=== PATIENT | female | born 1985 | race Caucasian/White ===

== ENCOUNTER → 2018-05-25 | Outpatient (CLI) | payer BC ==
[2018-05-25 18:07] LABS: BASO % 0.5 % (0.0-1.0); EOS # 0.1 10^3/uL (0.0-0.50); EOS % 1.6 % (0.0-3.0); HEMATOCRIT 40.2 % (36.0-47.0); IMMATURE GRANULOCYTE % 0.2 % (0-3.0); LYMPH # 2.4 10^3/uL (1.5-4.5); LYMPH % 28.9 % (24.0-44.0); MEAN CORPUSCULAR HEMOGLOBIN 30.8 pg (27.0-33.0); MEAN CORPUSCULAR HGB CONC 34.8 g/dl (32.0-36.5); MEAN CORPUSCULAR VOLUME 88.4 fl (80.0-96.0); MONO # 0.6 10^3/uL (0.0-0.8); MONO % 7.7 % (0.0-5.0); NEUTROPHILS % 61.1 % (36.0-66.0); PLATELET COUNT, AUTOMATED 283 10^3/uL (150-450); RED BLOOD COUNT 4.55 10^6/uL (4.00-5.40); RED CELL DISTRIBUTION WIDTH 11.9 % (11.5-14.5); WHITE BLOOD COUNT 8.2 10^3/uL (4.0-10.0)
[2018-05-25 20:48] LABS: CHLAMYDIA DNA AMPLIFICATION NEGATIVE (NEGATIVE); GC DNA AMPLIFICATION NEGATIVE (NEGATIVE)
[2018-05-27 09:07] LABS: RUBELLA IgG QUALITATIVE IMMUNE (IMMUNE)
[2018-05-27 09:16] LABS: HBsAg Prenatal NEGATIVE (NEGATIVE)
[2018-05-27 09:36] LABS: HEPATITIS C VIRUS ABY INDEX 0.1 INDEX (<0.8)
[2018-06-01 08:29] LABS: HIV 1&2 SCREEN CENTAUR REACTIVE (NEGATIVE)
[2018-06-01 08:31] LABS: IMMUNODEF. VIRAL AB CONFIRMAT NEGATIVE
== END ==
LOC: M LAB 16:38
DX: Z34.81 Encounter for supervision of other normal pregnancy, first trimester (principal); Z36.89 Encounter for other specified antenatal screening; Z3A.08 8 weeks gestation of pregnancy
CPT/HCPCS: 86762

== ENCOUNTER → 2018-06-24 | Outpatient (CLI) | payer BC | LOC: M SMT 09:29 | DX: Z34.81 Encounter for supervision of other normal pregnancy, first trimester (principal) | CPT/HCPCS: 36415 ==

== ENCOUNTER → 2018-08-11 | Outpatient (CLI) | payer BC | LOC: M RAD 09:02 | DX: Z34.82 Encounter for supervision of other normal pregnancy, second trimester (principal); Z36.89 Encounter for other specified antenatal screening; Z3A.19 19 weeks gestation of pregnancy | CPT/HCPCS: 76811 ==

== ENCOUNTER → 2018-09-03 | Outpatient (CLI) | payer BC | LOC: M RAD 07:58 | DX: Z34.02 Encounter for supervision of normal first pregnancy, second trimester (principal); Z3A.23 23 weeks gestation of pregnancy | CPT/HCPCS: 76816 ==

== ENCOUNTER → 2018-09-18 | Outpatient (CLI) | payer BC ==
[2018-09-18 13:37] LABS: HEMATOCRIT 37.6 % (36.0-47.0); HEMOGLOBIN 12.7 g/dl (12.0-15.5); MEAN CORPUSCULAR HEMOGLOBIN 31.9 pg (27.0-33.0); MEAN CORPUSCULAR HGB CONC 33.8 g/dl (32.0-36.5); MEAN CORPUSCULAR VOLUME 94.5 fl (80.0-96.0); PLATELET COUNT, AUTOMATED 210 10^3/uL (150-450); RED BLOOD COUNT 3.98 10^6/uL (4.00-5.40); RED CELL DISTRIBUTION WIDTH 12.9 % (11.5-14.5); WHITE BLOOD COUNT 6.9 10^3/uL (4.0-10.0)
[2018-09-18 14:00] LABS: GLUCOSE CHALLENGE TEST 1 HOUR 98 MG/DL (LESS THAN 140)
== END ==
LOC: M SMT 08:51
DX: Z36.89 Encounter for other specified antenatal screening (principal)
CPT/HCPCS: 82950

== ENCOUNTER → 2018-12-07 | Outpatient (REF) | payer BC | LOC: M LAB REF 17:32 | PROVIDERS: ATTEND Advanced Practice Midwife | DX: Z34.03 Encounter for supervision of normal first pregnancy, third trimester (principal); Z3A.00 Weeks of gestation of pregnancy not specified ==

== ENCOUNTER 2019-01-04 02:59 | Inpatient (IN) | payer BC ==
[~2019-01-04] VITALS: Ht 167.6 cm; Wt 99.2 kg
[2019-01-04] VITALS (39 sets, daily range): BP systolic 78–187; BP diastolic 40–144
[2019-01-04] MEDS ORDERED: PRENTAB9 PO (03:31)
[2019-01-04] MEDS ORDERED: FISH1000 PO (03:33)
[2019-01-04] MEDS ORDERED: GLUC500T53 PO (03:33)
[2019-01-04] MEDS ORDERED: LR 1,000 ML IV SCH (03:38)
[2019-01-04] MEDS ORDERED: LACTATED RINGER'S 1000 ML IV STA (03:38)
--- NOTE | 2019-01-04 03:58 | HPEPDOC ---
Obstetrical History & Physical General Date of Admission 01/04/2019 Primary Care Physician: RICARDO MARSHALL CNM History of Present Illness Patient is a 33-year-old female who is a at 40.5 weeks gestation with an JULIO of 12/30/18 based off of her LMP and consistent with her first trimester ultrasound. She initiated care in her first trimester ultrasound. Her has been uncomplicated. She presents to L&D in active labor. She reports active movement. She denies vaginal bleeding or leaking of fluid. 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 Past Medical History Medical History varicella as a child Surgical History: Denies/None Family History Significant Family History: Cancer, Diabetes, Hyperlipidemia, Other (lupus, RA, hypothyroidism, migraines, Raynauds, DVT's) Social History Marital Status: Family situation: Spouse/partner home Psychosocial History: No pertinent psych hx * Smoker: non-smoker Alcohol: Denies Drugs: denies Abuse Violence Screening Have you been hit/kicked/slapp: No Have you been sexually assault: No Imunizations Tdap status: current Allergies Coded Allergies: No Known Allergies (Unverified , 01/04/19) Medications Scheduled Fish Oil (Fish Oil) 1,000 Mg Cap, 1 CAP PO DAILY Multivitamins/ ( 27-0.8 mg) 1 Tab Tab, 1 TAB PO DAILY Miscellaneous Medications Glucosamine Hydrochloride (Glucosamine) 500 Mg Tab, 500 MG PO Physical Examination Physical Examination GENERAL: Alert and oriented times three. BREAST: . ABDOMEN: Gravid and non-tender to touch. FETUS: Is vertex (VTX) by sterile vaginal examination (SVE), fetus is vertex (VTX) by Nael. HEART RATE: Regular rate and rhythm. LUNGS: Clear to auscultation (CTA). EXTREMITIES: Generalized edema. No clonus. Deep tendon reflexes (DTRs) + 2. Laboratory Data Urine Culture: No Growth Pertinent Laboratoy Data Blood Type: A+ RBC Antibody Screen: Negative HIV: Negative Hepatitis B: Negative Hepatitis C: Negative Rapid Plasma Reagin: Nonreactive Rubella: Immune Chlamydia/Gonorrhea: Negative Group B Streptococcus: Negative Glucose Tolerance Test: 98 Anatomy Ultrasound Ultrasound Date: Sep 03, 2018 Placenta Location: Anterior Normal Anatomy: Yes Placenta Previa: No Vaginal Examination Dilation: 4 cm Effacement: 100% Station: 0 Cervical Position: Anterior Presentation: Cephalic presentation Position: Vertex (occiput) Assessment Heart Rate (FHR): 130 Variability: Moderate Accelerations: Positive Decelerations: None Tocometer Contractions: Yes Frequency: regular Strength: palpated as moderate Multi-drug resistant Organism: No history of MDRO Assessment/Plan Assessment IUP at 40.5 weeks gestation Active labor GBS negative Category I FHR tracing Plan Admit to L&D. OOB ad paola Diet: clears. Group B Streptococcus (GBS) negative. Labs and intravenous (IV) per unit protocol. Lactated Ringers (LR): Bolus 800 mL, then at 125 mL/hr. Anesthesia consult per patient's request. Anticipate cervical change and . RICARDO MARSHALL CNM Jan 04, 2019 03:58
[2019-01-04 04:09] LABS: HEMATOCRIT 39.4 % (36.0-47.0); HEMOGLOBIN 13.4 g/dl (12.0-15.5); MEAN CORPUSCULAR HEMOGLOBIN 30.4 pg (27.0-33.0); MEAN CORPUSCULAR VOLUME 89.3 fl (80.0-96.0); PLATELET COUNT, AUTOMATED 159 10^3/uL (150-450); RED BLOOD COUNT 4.41 10^6/uL (4.00-5.40); WHITE BLOOD COUNT 10.5 10^3/uL (4.0-10.0)
[2019-01-04] MEDS ORDERED: OXYTOCIN DRIP 30 UNITS in APPROPRIATE DILUENT 1 EA IV SCH ×2 (04:15→12:56)
[2019-01-04] MEDS ORDERED: FENTANYL 2MCG/ML ROPIVACAINE 0.2% IN 0.9% NACL 100ML IVBAG As Ordered ONE (04:44)
[2019-01-04] MEDS ORDERED: ONDANSETRON 4MG/2ML VIAL (J2405) IV PRN (05:45)
[2019-01-04] MEDS ORDERED: diphenhydrAMINE INJ 50MG/ML VIAL (J1200) IV PRN (05:45)
[2019-01-04] MEDS ORDERED: FENTANYL/ROPIVACAINE/NACL BAG 100 ML EPIDURAL SCH (05:45)
[2019-01-04] MEDS ORDERED: ePHEDrine SULFATE 25 MG/5 ML(5MG/ML) SYRINGE IV PRN (05:45)
[2019-01-04] MEDS ORDERED: EPIDURAL COMMENT XX SCH (05:45)
[2019-01-04] MEDS ORDERED: EPIDURAL/PCA KEYS XX PRN (05:45)
[2019-01-04] MEDS ORDERED: LACTATED RINGER'S 1000 ML IV PRN (05:45)
[2019-01-04] MEDS ORDERED: NALOXONE INJ 0.4 MG/1 ML VIAL (J2310) IV PRN (05:45)
[2019-01-04] MEDS ORDERED: REFRIGERATOR IV KEYS XX PRN (05:45)
[2019-01-04] MEDS: PRENATAL VITAMINS CHEWABLE TABLET PO SCH (09:00)
--- NOTE | 2019-01-04 10:06 | IPNPDOC ---
Obstetrical Progress Note Date of Service Jan 04, 2019 Subjective Patient comfortable with epidural. Objective Vital Signs Date Time Temp Pulse Resp B/P (MAP) Pulse Ox O2 Delivery O2 Flow Rate FiO2 01/04/19 07:18 98.4 63 18 92/51 (65) Assessment Heart Rate (FHR): 140 Variability: Moderate Accelerations: Positive Decelerations: None Heart Rate Tracing: Category I Tocometer Contractions: Yes Frequency: regular Sterile Vaginal Examination Dilation: 9 cm Effacement (%): 100% Station: +1 Postion/Presentation: Cephalic presentation Assessment and Plan Status: Reassuring Group B Streptococcus: Negative Anticipate: Vaginal Delivery Additional Comments Pitocin at 2 mu/min. Anticipate vaginal delivery. RICARDO MARSHALL CNM Jan 04, 2019 10:06
[2019-01-04] MEDS ORDERED: DOCUSATE SODIUM 100 MG CAP PO PRN (13:00)
[2019-01-04] MEDS ORDERED: ACETAMINOPHEN 500 MG TAB PO PRN (13:00)
[2019-01-04] MEDS ORDERED: ANUSOL HC CREAM 30GM TOP PRN (13:00)
[2019-01-04] MEDS ORDERED: RHOGAM 300 MCG (1500 IU) INJ (J2790) IM SCH (13:00)
[2019-01-04] MEDS ORDERED: MEASLES,MUMPS,RUBELLA VACCINE INJ (MMR-II) (90707) SC SCH (13:00)
[2019-01-04] MEDS ORDERED: METHYLERGONOVINE MALEATE 0.2 MG TAB PO PRN (13:00)
[2019-01-04] MEDS ORDERED: DIBUCAINE 1% OINTMENT 30GM TOP PRN (13:00)
--- NOTE | 2019-01-04 13:00 | DNPDOC ---
[facility] Delivery Note Delivery Note DATE OF DELIVERY: 01/04/2019 at 1131 PREDELIVERY DIAGNOSIS: 40-5/7 weeks' gestation and labor. POST DELIVERY DIAGNOSIS: Delivered. PROCEDURE: Spontaneous vaginal delivery. CLOTH MENDER: Ricardo Moore CNM, [facility] ANESTHESIA: epidural. ESTIMATED BLOOD LOSS: 650 mL. FINDINGS: 7 pounds 9 ounce; 3440 grams, female infant; Score 9/9, nuchal cord times x1 tight; right sulcus tear and 2nd degree perineal; meconium. DELIVERY SUMMARY: Patient is a 33-year-old female who is now a at 40.5 weeks gestation who presented to L&D in active labor. She received an epidural for pain management. The patient progressed to fully dilated at 1045 with IV Pitocin augmentation. She pushing to a living female in the TORIE position with restitution to ROT at 1131. A tight nuchal cord was noted. The anterior shoulder delivered with ease and the corpus immediately followed via [place]. The baby was placed [id number] active and crying with stimulation. The cord was clamped x2 after 2 minutes and cut by the FOB. A 3-vessel cord was noted. The placenta delivered spontaneously and intact at 1135. Uterine hemostasis was achieved via rapid infusion of IV Pitocin and fundal massage. The vagina and perineum were inspected and found to have a second degree laceration with a deep right sulcus tear and a left labial laceration. The second degree was repaired with a 3.[address]-1. Dr. Arteaga was called into delivery to do the sulcus repair. His repair was done with a 3.0 Chromic. Mom plans to breast feed her . They are naming her Mayda. Both mom and baby are in stable condition. RICARDO MOORE CNM Jan 04, 2019 13:00
[2019-01-04] MEDS: IBUPROFEN 800 MG TAB PO PRN (18:03)
[2019-01-05 06:00] VITALS: BP 98/58
[2019-01-05] MEDS: IBUPROFEN 800 MG TAB PO PRN ×2 (06:13→16:03)
[2019-01-05 06:20] LABS: HEMATOCRIT 24.5 % (36.0-47.0); MEAN CORPUSCULAR HEMOGLOBIN 30.2 pg (27.0-33.0); MEAN CORPUSCULAR HGB CONC 33.1 g/dl (32.0-36.5); MEAN CORPUSCULAR VOLUME 91.4 fl (80.0-96.0); PLATELET COUNT, AUTOMATED 125 10^3/uL (150-450); RED BLOOD COUNT 2.68 10^6/uL (4.00-5.40); WHITE BLOOD COUNT 11.5 10^3/uL (4.0-10.0)
[2019-01-05 06:23] LABS: HEMOGLOBIN 8.1 g/dl (12.0-15.5)
[2019-01-05] MEDS: PRENATAL VITAMINS CHEWABLE TABLET PO SCH (09:17)
--- NOTE | 2019-01-05 14:22 | RO ---
DATE OF PROCEDURE: 01/04/2019 PREPROCEDURE DIAGNOSIS: Right vaginal sulcus laceration following vaginal delivery. POSTPROCEDURE DIAGNOSIS: Right vaginal sulcus laceration following vaginal delivery. PROCEDURE: Repair of right vaginal sulcus tear. SURGEON: Dr. Hardy Arteaga. HEALTHCARE ECONOMICS CONSULTANT: Cheryl Rodriguez CNM. ANESTHESIA: Epidural. ESTIMATED BLOOD LOSS: 400 mL FINDINGS: Large right vaginal sulcus tear into the ischiorectal fossa approximately three-quarters of the way up the vagina adjacent to the cervix. DESCRIPTION OF PROCEDURE: After successful completion of vaginal delivery, a large sulcus tear was noted which required repair. I was called to perform the repair. A right angle retractor was placed anteriorly in the vagina. A right urethral retractor was placed in the left vaginal side wall. The apex of the sulcus tear was sutured with #2-0 chromic suture. The sulcus tear was repaired with #2-0 chromic in a running locked fashion. Good hemostasis was noted. Sponge and needle counts were correct.
[2019-01-05 18:00] VITALS: BP 110/65
[2019-01-06] MEDS: IBUPROFEN 800 MG TAB PO PRN (04:34)
[2019-01-06 06:00] VITALS: BP 94/50
[2019-01-06] MEDS: PRENATAL VITAMINS CHEWABLE TABLET PO SCH (07:18)
[2019-01-06] MEDS ORDERED: IBUP-1114 PO (08:44)
[2019-01-06] MEDS ORDERED: MAPA500T2 PO (08:44)
== END 2019-01-06 11:00 | disposition home or self-care (01) | DRG 560 ==
LOC: M LDO 02:59 → M LDI 03:42 → M OBS 18:37
PROVIDERS: ADMIT Advanced Practice Midwife; ATTEND Advanced Practice Midwife
PROC: 10E0XZZ Delivery of Products of Conception, External Approach (ICD-10-PCS; principal; 2019-01-04)
PROC: 05QM0ZZ Repair Right Internal Jugular Vein, Open Approach (ICD-10-PCS; 2019-01-04)
DX: O48.0 Post-term pregnancy (principal); Z37.0 Single live birth; Z3A.40 40 weeks gestation of pregnancy; O70.1 Second degree perineal laceration during delivery; O69.89X0 Labor and delivery complicated by other cord complications, not applicable or unspecified

== ENCOUNTER → 2019-11-01 | Outpatient (REF) | payer BC ==
[~2019-11-01] MED LIST: FISH1000 PO; GLUC500T53 PO; IBUP-1114 PO; MAPA500T2 PO; PRENTAB9 PO
== END ==
LOC: M SFHCCLAY 08:47
PROVIDERS: ATTEND Family Medicine
DX: Z11.4 Encounter for screening for human immunodeficiency virus [HIV] (principal)

== ENCOUNTER → 2020-04-17 | Outpatient (REF) | payer BC ==
[2020-04-17 13:00] LABS: HEMATOCRIT 42.8 % (36.0-47.0); HEMOGLOBIN 14.3 g/dl (12.0-15.5); MEAN CORPUSCULAR HEMOGLOBIN 30.9 pg (27.0-33.0); MEAN CORPUSCULAR HGB CONC 33.4 g/dl (32.0-36.5); MEAN CORPUSCULAR VOLUME 92.4 fl (80.0-96.0); PLATELET COUNT, AUTOMATED 240 10^3/uL (150-450); RED BLOOD COUNT 4.63 10^6/uL (4.00-5.40); WHITE BLOOD COUNT 5.5 10^3/uL (4.0-10.0)
[2020-04-17 13:55] LABS: HEPATITIS C VIRUS ABY INDEX 0.1 INDEX (<0.8); HIV 1&2 SCREEN CENTAUR NEGATIVE (NEGATIVE)
[2020-04-17 14:52] LABS: CHLAMYDIA DNA AMPLIFICATION NEGATIVE (NEGATIVE); GC DNA AMPLIFICATION NEGATIVE (NEGATIVE)
== END ==
LOC: M PLALAB 09:56
PROVIDERS: ATTEND Advanced Practice Midwife
DX: Z34.81 Encounter for supervision of other normal pregnancy, first trimester (principal)

== ENCOUNTER → 2020-06-23 | Outpatient (CLI) | payer BC ==
--- NOTE | 2020-07-07 13:01 | REP ---
COMPLETE OBSTETRICAL ULTRASOUND CLINICAL: Anatomical assessment. FINDINGS: Ultrasound examination demonstrates a single live intrauterine in cephalic presentation. Placenta noted posteriorly and grade 1 without evidence for placenta previa or abruption. Amniotic fluid volume is normal. Cervix measures 4.2 cm in length and appears closed. No evidence for nuchal cord. Gestational age by current measurements 20 weeks 3 days with estimated date of delivery 11/07/2020. heart rate 138 beats per minute. Estimated weight by current biometrical measurements 368 grams (56th percentile). Anatomical assessment demonstrates normal cranium, ventricles, choroid plexus, cerebellum/posterior fossa, facial features, four chamber heart/ventricular outflow tracts, lungs, diaphragm, stomach, three-vessel cord/cord insertion, kidneys/bladder, spine and extremities. IMPRESSION: Single live intrauterine in cephalic presentation demonstrating appropriate estimated weight. Anatomical assessment is complete and normal. [facility]
== END ==
LOC: M WHC 08:54
PROVIDERS: ATTEND Advanced Practice Midwife
DX: Z34.82 Encounter for supervision of other normal pregnancy, second trimester (principal); Z3A.20 20 weeks gestation of pregnancy

== ENCOUNTER → 2020-07-26 | Outpatient (CLI) | payer BC ==
[2020-07-26 11:19] LABS: BASO % 0.6 % (0.0-1.0); EOS # 0.1 10^3/uL (0.0-0.5); EOS % 0.9 % (0.0-3.0); HEMATOCRIT 37.4 % (36.0-47.0); HEMOGLOBIN 12.1 g/dl (12.0-15.5); LYMPH # 1.5 10^3/uL (1.5-5.0); LYMPH % 22.8 % (24.0-44.0); MEAN CORPUSCULAR HEMOGLOBIN 30.8 pg (27.0-33.0); MEAN CORPUSCULAR HGB CONC 32.4 g/dl (32.0-36.5); MEAN CORPUSCULAR VOLUME 95.2 fl (80.0-96.0); MONO # 0.4 10^3/uL (0.0-0.8); MONO % 6.6 % (0.0-5.0); NEUTROPHILS # 4.4 10^3/uL (1.5-8.5); NEUTROPHILS % 68.3 % (36.0-66.0); PLATELET COUNT, AUTOMATED 197 10^3/uL (150-450); RED BLOOD COUNT 3.93 10^6/uL (4.00-5.40); WHITE BLOOD COUNT 6.5 10^3/uL (4.0-10.0)
== END ==
LOC: M PLALAB 08:16
PROVIDERS: ATTEND Advanced Practice Midwife
DX: Z34.82 Encounter for supervision of other normal pregnancy, second trimester (principal)

== ENCOUNTER → 2020-08-04 | Outpatient (CLI) | payer BC | LOC: M LAB 06:39 | PROVIDERS: ATTEND Advanced Practice Midwife | DX: O99.810 Abnormal glucose complicating pregnancy (principal); Z3A.00 Weeks of gestation of pregnancy not specified ==

== ENCOUNTER → 2020-10-10 | Outpatient (REF) | payer BC | LOC: M SFHCWAGY 10:26 | PROVIDERS: ATTEND Advanced Practice Midwife | DX: Z34.83 Encounter for supervision of other normal pregnancy, third trimester (principal); Z3A.36 36 weeks gestation of pregnancy ==

== ENCOUNTER 2020-11-11 10:54 | Inpatient (IN) | payer BC ==
[2020-11-11] VITALS (10 sets, daily range): BP systolic 113–156; BP diastolic 61–82
[~2020-11-11] VITALS: Ht 167.6 cm; Wt 88.8 kg
--- NOTE | 2020-11-11 11:38 | HPEPDOC ---
Obstetrical History & Physical General Date of Admission Nov 11, 2020 at 10:54 History of Present Illness 35-year-old 2 para 1 who presents at 41 weeks 0 days for induction labor for postdates. Her course has been uncomplicated. She initiated care in the first trimester and appropriate throughout. Chief Complaint: Induction of labor Information Provided By: Patient Age: 35 : 2 Livin Care Care: Good Care Dating Final EDC: Nov 04, 2020 Final EDC by: LMP, 1st trimester (US) Past Medical History Past Obstetrical History : Past Obstetrical History: Multigravida Date of Delivery: Jan 04, 2019 Type of Delivery: Spontaneous Vaginal Del. 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 Past Medical History Medical History Migraines Surgical History: Denies/None Family History Significant Family History: No pertinent family hx Social History Marital Status: Family situation: Spouse/partner home Psychosocial History: No pertinent psych hx * Smoker: non-smoker Alcohol: Denies Drugs: denies Allergies Coded Allergies: No Known Allergies (Unverified , 01/04/19) Medications Scheduled [place]-3 Fatty Acids/Fish Oil (Fish Oil 1,000 mg Capsule) 1,000 Mg Cap, 1 CAP PO DAILY No.137/Iron/Folic Acd ( Vitamin Tablet) 1 Tab Tab, 1 TAB PO DAILY Scheduled PRN Acetaminophen (Mapap) 500 Mg Tab, 1,000 MG PO Q6HP PRN for MILD PAIN (PS 1-4) Miscellaneous Medications Glucosamine HCl (Glucosamine HCl) 500 Mg Tab, 500 MG PO Physical Examination Physical Examination GENERAL: Alert and oriented times three. BREAST: . ABDOMEN: Gravid and non-tender to touch. FETUS: Is vertex (VTX) by sterile vaginal examination (SVE), fetus is vertex (VTX) by Nael. HEART RATE: Regular rate and rhythm. LUNGS: Clear to auscultation (CTA). Vital Signs/I&O Vital Signs Date Time Temp Pulse Resp B/P (MAP) Pulse Ox O2 Delivery O2 Flow Rate FiO2 11/11/20 11:16 98.4 69 18 116/81 (93) Laboratory Data 24H LABS Laboratory Tests 2 11/11/20 11:08: Serology Scanned Report Hepatitis B Testing Pertinent Laboratoy Data Blood Type: A+ RBC Antibody Screen: Negative HIV: Negative Hepatitis B: Negative Hepatitis C: Negative Rapid Plasma Reagin: Nonreactive Rubella: Immune Chlamydia/Gonorrhea: Negative Group B Streptococcus: Negative Anatomy Ultrasound Normal Anatomy: Yes Placenta Previa: No Vaginal Examination Dilation: 3 cm Effacement: 50% Station: -2 Cervical Consistency: Medium Cervical Position: Middle Presentation: Cephalic presentation Assessment Variability: Moderate Accelerations: Positive Decelerations: None Tocometer Contractions: No Assessment/Plan Assessment 35-year-old 2 para 1 at 41 weeks here for induction labor for postdate Reassuring status Plan Admit and orient. Technician Helper Instrument and consent. Diet: Regular. Group B Streptococcus (GBS) negative. Labs and intravenous (IV) per unit protocol. Counseled on Pitocin and induction of labor (IOL). Anticipate normal spontaneous delivery (). C-S as appropriate. Labor and Delivery Counseling Patient has been thoroughly counseled in regards to induction labor. I've discussed medications as well as procedure performed in labor and delivery. She has been verbally consented for emergency surgery, blood products, anesthesia and desires to proceed with induction. Will initiate her induction with Pitocin. ABRIL NANCE MD. Nov 11, 2020 11:38
[2020-11-11 11:51] LABS: HEMATOCRIT 36.1 % (36.0-47.0); HEMOGLOBIN 11.9 g/dl (12.0-15.5); MEAN CORPUSCULAR VOLUME 90.9 fl (80.0-96.0); PLATELET COUNT, AUTOMATED 174 10^3/uL (150-450); RED BLOOD COUNT 3.97 10^6/uL (4.00-5.40); WHITE BLOOD COUNT 5.6 10^3/uL (4.0-10.0)
[2020-11-11] MEDS ORDERED: miSOPROStol 50MCG 1/2 TABLET PO SCH (12:00)
[2020-11-11] MEDS ORDERED: OXYTOCIN DRIP 30 UNITS in IV 1 EA IV SCH ×2 (16:15→21:22)
[2020-11-11] MEDS ORDERED: OXYTOCIN 30 UNITS IN 0.9% NaCl 500ML IV BAG (J2590) As Ordered ONE (16:21)
[2020-11-11] MEDS ORDERED: LR 1,000 ML IV SCH (16:30)
[2020-11-11] MEDS ORDERED: FENTANYL 2MCG/ML ROPIVACAINE 0.2% IN 0.9% NACL 100ML IVBAG As Ordered ONE (19:05)
[2020-11-11] MEDS ORDERED: diphenhydrAMINE 50MG/ML VIAL (J1200) IV PRN (19:15)
[2020-11-11] MEDS ORDERED: EPIDURAL COMMENT XX SCH (19:15)
[2020-11-11] MEDS ORDERED: NALOXONE INJ 0.4MG/1ML VIAL (J2310 PER 1MG) IV PRN (19:15)
[2020-11-11] MEDS ORDERED: ePHEDrine SULFATE 25 MG/5 ML(5MG/ML) SYRINGE IV PRN (19:15)
[2020-11-11] MEDS ORDERED: REFRIGERATOR IV KEYS XX PRN (19:15)
[2020-11-11] MEDS ORDERED: ONDANSETRON 4MG/2ML VIAL IV PRN (19:15)
[2020-11-11] MEDS ORDERED: FENTANYL/ROPIVACAINE/NACL BAG 100 ML EPIDURAL SCH (19:15)
[2020-11-11] MEDS ORDERED: LACTATED RINGER'S 1000 ML IV PRN (19:15)
[2020-11-11] MEDS ORDERED: EPIDURAL/PCA KEYS XX PRN (19:15)
[2020-11-11] MEDS ORDERED: RHOGAM 300 MCG (1500 IU) INJ (J2790) IM SCH (21:30)
[2020-11-11] MEDS ORDERED: METHYLERGONOVINE MALEATE 0.2 MG TAB PO PRN (21:30)
[2020-11-11] MEDS ORDERED: MOM 30ML SUSPENSION UDC PO PRN (21:30)
[2020-11-11] MEDS ORDERED: ACETAMINOPHEN TAB 650MG DOSE (2X325MG) PO PRN (21:30)
[2020-11-11] MEDS ORDERED: MEASLES,MUMPS,RUBELLA VACCINE INJ (MMR-II) (90707) SC SCH (21:30)
[2020-11-11] MEDS ORDERED: BENZOCAINE 20% HEMORRHOIDAL OINTMENT 28GM TUBE TOP PRN (21:30)
[2020-11-11] MEDS ORDERED: IBUPROFEN 600MG TAB PO PRN (21:30)
--- NOTE | 2020-11-11 21:38 | DNPDOC ---
[facility] Delivery Note Delivery Note DATE OF DELIVERY: 11/11/2020 TIME OF : 2001 GENDER: Female APGARS: 7 and 9. WEIGHT: 3510 grams or 7 pounds 12ounces. LACERATIONS: none ANESTHESIA: epidural ESTIMATED BLOOD LOSS: 200ml COUNTS: 5 laparotomy sponges accounted for prior to after delivery. DELIVERY NOTE: On 11/11/2020 at 2001 Mrs Ro 35-year-old 2 now para 2 had a spontaneous vaginal delivery of a liveborn female infant 7 and 9 weight was 3510 g or 7 lbs. 12 oz. Head was delivered occiput anterior (OA). There was a tight nuchal cord which was surgically reduced followed by delivery of the shoulders and corpus. was handed to mom with a good cry. Placenta was then drained and delivered grossly intact. A premixed bag of 500 mL of normal saline with 30 units of Pitocin was then bolused along with uterine ma ssage until the uterus was firm. On inspection, cervix, vagina, perineum was grossly intact and hemostatic. Mom and baby in recovery on stable condition. The couples decided to name the daughter Nicole. ABRIL NANCE MD. Nov 11, 2020 21:38
[2020-11-12] MEDS: IBUPROFEN 800 MG TAB PO PRN (02:33)
[2020-11-12] MEDS: DOCUSATE SODIUM 100MG CAPSULE PO PRN (02:33)
[2020-11-12 05:51] VITALS: BP 126/64
[2020-11-12] MEDS: ACETAMINOPHEN 500 MG TAB PO PRN ×2 (06:50→12:06)
--- NOTE | 2020-11-12 07:00 | IPNPDOC ---
Progress Note Date of Service: Nov 12, 2020 Day#: 1 Progress Note SUBJECT: Doing well without complaints. Ambulating, voiding and pain is well- controlled. Reports minimal lochia. OBJECTIVE: VITAL SIGNS: Within normal limits, afebrile. Alert and oriented times three. Abdomen: Fundus firm at U-2. Soft, NTTP. Ext: neg calf tenderness. ASSESSMENT: day #1 status post . Recovering in stable condition. PLAN: 1. Continue routine care 2. Discharge plans for tomorrow VS, I&O, 24H, Fishbone Vital Signs/I&O Vital Signs Date Time Temp Pulse Resp B/P (MAP) Pulse Ox O2 Delivery O2 Flow Rate FiO2 11/12/20 05:51 98.0 48 20 126/64 (84) I&O- Last 24 Hours up to 6 AM 11/12/20 06:00 Intake Total 1870 ml Output Total 1700 ml Balance 170 ml Laboratory Data 24H LABS Laboratory Tests 2 11/11/20 11:08: Serology Scanned Report Hepatitis B Testing 11/11/20 11:39: Nucleated Red Blood Cells % (auto) 0.0 CBC/BMP Laboratory Tests 11/11/20 11:39 ABRIL NANCE MD. Nov 12, 2020 07:00
[2020-11-12] MEDS: PRENATAL VITAMINS CHEWABLE TABLET PO SCH (08:02)
[2020-11-12 17:57] VITALS: BP 146/88
[2020-11-13 00:52] VITALS: BP 160/82
[2020-11-13] MEDS: IBUPROFEN 800 MG TAB PO PRN (00:56)
[2020-11-13] MEDS ORDERED: BICITRA 30ML SOLN UDC PO ONE (01:15)
[2020-11-13] MEDS ORDERED: BICITRA 30ML SOLN UDC As Ordered ONE (01:27)
[2020-11-13] MEDS: DOCUSATE SODIUM 100MG CAPSULE PO PRN (01:43)
[2020-11-13 02:06] VITALS: BP 122/76
[2020-11-13 06:00] VITALS: BP 147/83
[2020-11-13] MEDS: PRENATAL VITAMINS CHEWABLE TABLET PO SCH (08:30)
== END 2020-11-13 12:20 | disposition home or self-care (01) | DRG 560 ==
LOC: M LDI 10:54 → M OBS 22:00
PROVIDERS: ADMIT Obstetrics & Gynecology; ATTEND Obstetrics & Gynecology
PROC: 10E0XZZ Delivery of Products of Conception, External Approach (ICD-10-PCS; principal; 2020-11-11)
PROC: 3E033VJ Introduction of Other Hormone into Peripheral Vein, Percutaneous Approach (ICD-10-PCS; 2020-11-11)
DX: O48.0 Post-term pregnancy (principal); Z3A.41 41 weeks gestation of pregnancy; O69.1XX0 Labor and delivery complicated by cord around neck, with compression, not applicable or unspecified; Z37.0 Single live birth

== ENCOUNTER → 2021-04-04 | Outpatient (REF) | payer BC | LOC: M SFHCWAGY 19:08 | PROVIDERS: ATTEND Advanced Practice Midwife | DX: Z12.4 Encounter for screening for malignant neoplasm of cervix (principal) ==

== ENCOUNTER 2021-04-23 16:05 | Emergency (ER) | payer BC ==
[~2021-04-23] VITALS: Ht 167.6 cm; Wt 75.3 kg
--- NOTE | 2021-04-23 18:47 | REP ---
INDICATION: R/O DVT. COMPARISON: None. TECHNIQUE: Right {lower extremity duplex venous scanning is performed from the groin to the ankle level. FINDINGS: The deep veins are anechoic and fully compressible from the groin to the popliteal fossa in the right lower extremity. Color flow imaging is homogeneous. Spectral Doppler interrogation demonstrates intact respiratory variation in flow and normal manual augmentation of flow. There is no evidence of deep vein thrombosis above the knee. There is no evidence of DVT in the visualized calf veins. Doppler interrogation of the contralateral common femoral vein shows normal symmetric respiratory phasicity. Scanning in the area the right posterior calf pain demonstrates a non thrombosed superficial varicose vein. IMPRESSION: No evidence of DVT in the right lower extremity femoropopliteal veins. No DVT in the visible portions of the calf veins. <Electronically signed by Jay Oneill > 04/23/21 [id number]
[2021-04-23 20:08] VITALS: BP 113/77
[2021-04-23 21:45] LABS: BLOOD UREA NITROGEN 13 MG/DL (7-18); CALCIUM LEVEL 9.2 MG/DL (8.5-10.1); CARBON DIOXIDE LEVEL 30 MEQ/L (21-32); CHLORIDE LEVEL 107 MEQ/L (98-107); CREATININE FOR GFR 0.78 MG/DL (0.55-1.30); GLOMERULAR FILTRATION RATE > 60.0 (>60); GLUCOSE, FASTING 93 MG/DL (70-100); POTASSIUM SERUM 3.7 MEQ/L (3.5-5.1); SODIUM LEVEL 141 MEQ/L (136-145)
== END 2021-04-23 22:07 | disposition home or self-care (01) ==
LOC: M ED 16:05
DX: M79.661 Pain in right lower leg (principal); Z79.899 Other long term (current) drug therapy

== ENCOUNTER → 2022-02-08 | Outpatient (CLI) | payer BC ==
[2022-02-08 13:20] LABS: BASO % 0.7 % (0.0-1.0); EOS # 0.1 10^3/uL (0.0-0.5); EOS % 1.7 % (0.0-3.0); HEMATOCRIT 40.9 % (36.0-47.0); HEMOGLOBIN 13.7 g/dl (12.0-15.5); LYMPH # 1.3 10^3/uL (1.5-5.0); LYMPH % 24.5 % (24.0-44.0); MEAN CORPUSCULAR HEMOGLOBIN 30.9 pg (27.0-33.0); MEAN CORPUSCULAR HGB CONC 33.5 g/dl (32.0-36.5); MEAN CORPUSCULAR VOLUME 92.3 fl (80.0-96.0); MONO # 0.3 10^3/uL (0.0-0.8); MONO % 5.9 % (2.0-8.0); NEUTROPHILS # 3.6 10^3/uL (1.5-8.5); NEUTROPHILS % 66.8 % (36.0-66.0); PLATELET COUNT, AUTOMATED 241 10^3/uL (150-450); RED BLOOD COUNT 4.43 10^6/uL (4.00-5.40); WHITE BLOOD COUNT 5.4 10^3/uL (4.0-10.0)
[2022-02-08 14:40] LABS: HEPATITIS C VIRUS ABY INDEX 0.1 INDEX (<0.8); HIV 1&2 SCREEN CENTAUR NEGATIVE (NEGATIVE)
[2022-02-08 16:18] LABS: GC DNA AMPLIFICATION NEGATIVE (NEGATIVE)
== END ==
LOC: M PLALAB 09:00
PROVIDERS: ATTEND Specialist
DX: Z36.9 Encounter for antenatal screening, unspecified (principal); O09.512 Supervision of elderly primigravida, second trimester; Z3A.14 14 weeks gestation of pregnancy

== ENCOUNTER → 2022-02-08 | Outpatient (CLI) | payer BC | LOC: M PLALAB 09:05 | PROVIDERS: ATTEND Obstetrics & Gynecology | DX: Z36.9 Encounter for antenatal screening, unspecified (principal); O09.512 Supervision of elderly primigravida, second trimester; Z3A.14 14 weeks gestation of pregnancy ==

== ENCOUNTER → 2022-03-13 | Outpatient (CLI) | payer BC | LOC: M PLALAB 08:34 | PROVIDERS: ATTEND Obstetrics & Gynecology | DX: Z32.00 Encounter for pregnancy test, result unknown (principal) ==

== ENCOUNTER → 2022-03-22 | Outpatient (CLI) | payer BC | LOC: M WHC 08:06 | PROVIDERS: ATTEND Obstetrics & Gynecology | DX: Z36.87 Encounter for antenatal screening for uncertain dates (principal); O09.522 Supervision of elderly multigravida, second trimester; Z3A.20 20 weeks gestation of pregnancy ==

== ENCOUNTER → 2022-04-22 | Outpatient (CLI) | payer BC ==
[2022-04-22 11:38] LABS: HEMATOCRIT 35.6 % (36.0-47.0); HEMOGLOBIN 11.9 g/dl (12.0-15.5); MEAN CORPUSCULAR HEMOGLOBIN 32.2 pg (27.0-33.0); MEAN CORPUSCULAR HGB CONC 33.4 g/dl (32.0-36.5); MEAN CORPUSCULAR VOLUME 96.2 fl (80.0-96.0); PLATELET COUNT, AUTOMATED 206 10^3/uL (150-450); WHITE BLOOD COUNT 6.5 10^3/uL (4.0-10.0)
[2022-04-22 13:06] LABS: GC DNA AMPLIFICATION NEGATIVE (NEGATIVE)
== END ==
LOC: M PLALAB 07:11
PROVIDERS: ATTEND Specialist
DX: Z36.9 Encounter for antenatal screening, unspecified (principal); Z36.89 Encounter for other specified antenatal screening

== ENCOUNTER → 2022-04-22 | Outpatient (CLI) | payer BC | LOC: M WHC 07:02 | PROVIDERS: ATTEND Specialist | DX: Z36.2 Encounter for other antenatal screening follow-up (principal); Z3A.24 24 weeks gestation of pregnancy ==

== ENCOUNTER → 2022-05-17 | Outpatient (CLI) | payer BC | LOC: M LAB 07:28 | PROVIDERS: ATTEND Obstetrics & Gynecology | DX: R73.09 Other abnormal glucose (principal) ==

== ENCOUNTER → 2022-07-09 | Outpatient (REF) | payer BC | LOC: M PLALAB 08:27 | PROVIDERS: ATTEND Obstetrics & Gynecology | DX: Z36.85 Encounter for antenatal screening for Streptococcus B (principal); Z3A.36 36 weeks gestation of pregnancy ==

== ENCOUNTER → 2022-07-10 | Outpatient (REF) | payer BC | LOC: M SFHCDERM 14:19 | PROVIDERS: ATTEND Physician Assistant | DX: D22.71 Melanocytic nevi of right lower limb, including hip (principal) ==

== ENCOUNTER 2022-08-11 14:40 | Inpatient (IN) | payer BC ==
[~2022-08-11] VITALS: Ht 167.6 cm; Wt 86.5 kg
[2022-08-11] VITALS (8 sets, daily range): BP systolic 101–122; BP diastolic 57–75
[2022-08-11] MEDS ORDERED: OXYTOCIN DRIP 30 UNITS in IV 1 EA IV PRN (14:55)
[2022-08-11] MEDS ORDERED: METHYLERGONOVINE MALEATE 0.2 MG/ML VIAL (J2210) IM PRN (14:55)
[2022-08-11] MEDS ORDERED: LACTATED RINGER'S 1000 ML IV PRN (14:55)
[2022-08-11] MEDS ORDERED: TRANEXAMIC ACID INJection 1,000 MG in NS 100 ML IV PRN (14:55)
[2022-08-11] MEDS ORDERED: CARBOPROST TROMETHAMINE 250 MCG/ML AMP IM PRN (14:55)
[2022-08-11] MEDS ORDERED: miSOPROStol 50MCG 1/2 TABLET PO ONE ×2 (14:55→19:55)
[2022-08-11 15:32] LABS: HEMATOCRIT 33.5 % (36.0-47.0); HEMOGLOBIN 11.6 g/dl (12.0-15.5); MEAN CORPUSCULAR HGB CONC 34.6 g/dl (32.0-36.5); MEAN CORPUSCULAR VOLUME 89.6 fl (80.0-96.0); PLATELET COUNT, AUTOMATED 179 10^3/uL (150-450); RED BLOOD COUNT 3.74 10^6/uL (4.00-5.40)
[2022-08-11] MEDS ORDERED: HOME MED LIST COMPLETE! XX SCH (15:45)
[2022-08-11] MEDS ORDERED: PENICILLIN G POTASSIUM 5 MU IV 5 MU in D5W MINI-BAG PLUS 100 ML IV ONE (16:00)
[2022-08-11] MEDS: PEN G POT 3,000,000 UNIT/50 ML 3,000,000 UNIT in IV 1 EA IV SCH (20:05)
[2022-08-11] MEDS ORDERED: OXYTOCIN DRIP 30 UNITS in IV 1 EA IV SCH (23:05)
[2022-08-12] VITALS (48 sets, daily range): BP systolic 76–129; BP diastolic 49–94
[2022-08-12] MEDS ORDERED: miSOPROStol 50MCG 1/2 TABLET PO ONE
[2022-08-12] MEDS: PEN G POT 3,000,000 UNIT/50 ML 3,000,000 UNIT in IV 1 EA IV SCH ×5 (00:08→16:33)
[2022-08-12] MEDS ORDERED: OXYTOCIN DRIP 30 UNITS in IV 1 EA IV SCH (04:40)
[2022-08-12] MEDS: LR 1,000 ML IV SCH ×2 (05:20→14:33)
[2022-08-12] MEDS ORDERED: LR 500 ML IV PRN (13:10)
[2022-08-12] MEDS ORDERED: FENTANYL 2MCG/ML ROPIVACAINE 0.2% IN 0.9% NACL 100ML IVBAG As Ordered ONE (13:10)
[2022-08-12] MEDS ORDERED: FENTANYL/ROPIVACAINE/NACL BAG 100 ML EPIDURAL SCH (13:10)
[2022-08-12] MEDS ORDERED: ONDANSETRON 4MG 2ML VIAL IV PRN (13:15)
[2022-08-12] MEDS ORDERED: EPIDURAL/PCA KEYS XX PRN (13:15)
[2022-08-12] MEDS ORDERED: diphenhydrAMINE 50MG/ML VIAL IV PRN (13:15)
[2022-08-12] MEDS ORDERED: ePHEDrine SULFATE 25 MG/5 ML(5MG/ML) SYRINGE IVP PRN (13:15)
[2022-08-12] MEDS ORDERED: NALOXONE INJ 0.4MG/1ML VIAL (J2310 PER 1MG) IV PRN (13:15)
[2022-08-12] MEDS ORDERED: MOM 30ML SUSPENSION UDC PO PRN (17:00)
[2022-08-12] MEDS ORDERED: RHOGAM 300 MCG (1500 IU) INJ (J2790) IM SCH (17:00)
[2022-08-12] MEDS ORDERED: ACETAMINOPHEN TAB 650MG DOSE (2X325MG) PO PRN (17:00)
[2022-08-12] MEDS ORDERED: ACETAMINOPHEN 500 MG TAB PO PRN (17:00)
[2022-08-12] MEDS ORDERED: IBUPROFEN 800 MG TAB PO PRN (17:00)
[2022-08-12] MEDS ORDERED: IBUPROFEN 600MG TAB PO PRN (17:00)
[2022-08-12] MEDS ORDERED: DIBUCAINE 1% OINTMENT 30GM TOP PRN (17:00)
[2022-08-12] MEDS ORDERED: DOCUSATE SODIUM 100MG CAPSULE PO PRN (17:00)
[2022-08-12] MEDS ORDERED: ANUSOL HC CREAM 30GM TOP PRN (17:00)
[2022-08-13 06:15] VITALS: BP 112/59
[2022-08-13] MEDS ORDERED: PRENATAL VITAMINS CHEWABLE TABLET PO SCH (09:00)
[2022-08-13 18:00] VITALS: BP 118/73
[2022-08-13] MEDS ORDERED: IBUP80TA PO (18:16)
[2022-08-13] MEDS ORDERED: ACET-683 PO (18:16)
[2022-08-14] MEDS ORDERED: MEASLES,MUMPS,RUBELLA VACCINE INJ (MMR-II) (90707) SC.IMMUN ONE (09:00)
== END 2022-08-13 20:00 | disposition home or self-care (01) | DRG 560 ==
LOC: M LDI 14:40 → M OBS 08-12 18:30
PROVIDERS: ADMIT Obstetrics & Gynecology; ATTEND Advanced Practice Midwife
PROC: 3E0P7GC Introduction of Other Therapeutic Substance into Female Reproductive, Via Natural or Artificial Opening (ICD-10-PCS; 2022-08-11)
PROC: 10E0XZZ Delivery of Products of Conception, External Approach (ICD-10-PCS; principal; 2022-08-12)
PROC: 10907ZC Drainage of Amniotic Fluid, Therapeutic from Products of Conception, Via Natural or Artificial Opening (ICD-10-PCS; 2022-08-12)
DX: O48.0 Post-term pregnancy (principal); O99.824 Streptococcus B carrier state complicating childbirth; Z3A.40 40 weeks gestation of pregnancy; O09.523 Supervision of elderly multigravida, third trimester; O32.6XX0 Maternal care for compound presentation, not applicable or unspecified; O69.2XX0 Labor and delivery complicated by other cord entanglement, with compression, not applicable or unspecified; Z37.0 Single live birth

== ENCOUNTER → 2023-02-28 | Outpatient (CLI) | payer BC ==
[~2023-02-28] MED LIST changes: +ACET-683 PO; +IBUP80TA PO
== END ==
LOC: M CLY 08:49
PROVIDERS: ATTEND Family Medicine
DX: M43.17 Spondylolisthesis, lumbosacral region (principal)

== ENCOUNTER → 2023-04-11 | Outpatient (CLI) | payer BC | LOC: M CLY 15:03 | PROVIDERS: ATTEND Family Medicine | DX: M25.561 Pain in right knee (principal) ==

== ENCOUNTER → 2023-05-08 | Outpatient (CLI) | payer BC | LOC: M RAD 08:17 | PROVIDERS: ATTEND Family Medicine | DX: M25.561 Pain in right knee (principal); M54.50 Low back pain, unspecified; M51.37 Other intervertebral disc degeneration, lumbosacral region; M43.17 Spondylolisthesis, lumbosacral region; R93.7 Abnormal findings on diagnostic imaging of other parts of musculoskeletal system; M25.461 Effusion, right knee; M71.21 Synovial cyst of popliteal space [Baker], right knee ==

== ENCOUNTER → 2023-09-08 | Outpatient (REF) | payer BC ==
[2023-09-08 16:57] LABS: HEMATOCRIT 41.1 % (36.0-47.0); HEMOGLOBIN 13.6 g/dl (12.0-15.5); MEAN CORPUSCULAR HEMOGLOBIN 31.2 pg (27.0-33.0); MEAN CORPUSCULAR HGB CONC 33.1 g/dl (32.0-36.5); MEAN CORPUSCULAR VOLUME 94.3 fl (80.0-96.0); PLATELET COUNT, AUTOMATED 268 10^3/uL (150-450); RED BLOOD COUNT 4.36 10^6/uL (4.00-5.40); WHITE BLOOD COUNT 4.7 10^3/uL (4.0-10.0)
[2023-09-08 17:23] LABS: ALBUMIN 3.7 G/DL (3.2-5.2); ALKALINE PHOSPHATASE 48 U/L (46-116); ALT/SGPT 15 U/L (7.0-40); AST/SGOT 11 U/L (<34); BILIRUBIN,TOTAL 1.7 MG/DL (0.3-1.2); BLOOD UREA NITROGEN 12 MG/DL (9-23); CALCIUM LEVEL 8.7 MG/DL (8.5-10.1); CARBON DIOXIDE LEVEL 29 MMOL/L (20-31); CHLORIDE LEVEL 108 MMOL/L (98-107); CREATININE FOR GFR 0.73 MG/DL (0.55-1.30); GLOMERULAR FILTRATION RATE > 60.0 (>60); GLUCOSE, FASTING 64 MG/DL (60-100); POTASSIUM SERUM 4.5 MMOL/L (3.5-5.1); SODIUM LEVEL 140 MMOL/L (136-145); TOTAL PROTEIN 6.6 G/DL (5.7-8.2)
[2023-09-08 17:33] LABS: C REACTIVE PROTEIN QUANTITATIV < 0.40 MG/DL (<1.0)
[2023-09-08 17:36] LABS: RHEUMATOID FACTOR QUANT < 3.5 IU/ML (<14)
== END ==
LOC: M SFHCCLAY 09:59
PROVIDERS: ATTEND Family Medicine
DX: M54.16 Radiculopathy, lumbar region (principal); S83.28 Other tear of lateral meniscus, current injury

== ENCOUNTER → 2024-04-12 | Outpatient (CLI) | payer BC | LOC: M RAD 13:53 | PROVIDERS: ATTEND Physician Assistant | DX: I83.811 Varicose veins of right lower extremity with pain (principal) ==

== ENCOUNTER → 2024-05-13 | Outpatient (REF) | payer BC ==
[2024-05-14 15:22] LABS: ANA SCREEN, IFA NEGATIVE (NEGATIVE)
[2024-05-15 02:03] LABS: CARDIOLIPIN IGA ANTIBODY < 2.0 APL-U/mL (<20.0); CARDIOLIPIN IGG ANTIBODY < 2.0 GPL-U/mL (<20.0); CARDIOLIPIN IGM ANTIBODY 2.4 MPL-U/mL (<20.0)
== END ==
LOC: M SFHCCLAY 07:52
PROVIDERS: ATTEND Family Medicine
DX: Z82.69 Family history of other diseases of the musculoskeletal system and connective tissue (principal)

== ENCOUNTER → 2024-08-20 | Outpatient (CLI) | payer BC | LOC: M RAD 16:14 | PROVIDERS: ATTEND Physician Assistant | DX: M79.604 Pain in right leg (principal); M79.89 Other specified soft tissue disorders ==

== ENCOUNTER → 2024-10-20 | Outpatient (REF) | payer BC ==
[2024-10-20 17:31] LABS: RSV AMPLIFICATION NEGATIVE (NEGATIVE)
== END ==
LOC: M SFHCCLAY 16:32
PROVIDERS: ATTEND Physician Assistant
DX: R50.9 Fever, unspecified (principal)

== ENCOUNTER → 2025-05-24 | Outpatient (REF) | LOC: M PLAIMG 13:03 | PROVIDERS: ATTEND Internal Medicine | DX: R52 Pain, unspecified (principal) ==

== ENCOUNTER → 2025-07-04 | Outpatient (CLI) | payer BC | LOC: M CLY 13:47 | PROVIDERS: ATTEND Family Medicine | DX: M54.2 Cervicalgia (principal); Z53.9 Procedure and treatment not carried out, unspecified reason ==

== ENCOUNTER → 2025-07-04 | Outpatient (CLI) | payer BC | LOC: M CLY 13:26 | PROVIDERS: ATTEND Family Medicine | DX: M54.6 Pain in thoracic spine (principal); M54.2 Cervicalgia ==